=== PATIENT | female | born 1995 | race Caucasian/White ===

== ENCOUNTER 2021-05-26 23:46 | Inpatient (IN) ==
[2021-05-27] MEDS ORDERED: OXYTOCIN 30 UNITS/500 ML BAG IV PRN ×2 (00:45→08:48)
--- NOTE | 2021-05-27 00:55 | History & Physical Report ---
Date of Service May 27, 2021 Assessment & Plan (1) SROM (spontaneous rupture of membranes): Plan: 25 y/o G1 at 39 wga presenting w/ SROM VSS Fetus cat 1 Labor - will manage expectantly, plan to recheck in few hours and if no progression can augment GBS neg Epidural PRN History of Present Illness Chief Complaint: LOF Primary Care Provider: NO PCP 25 y/o G1 at 39 wga w/ ROSALINDA 8/13 by LMP / c/w 1st tri who presents w/ c/o LOF since 1030 pm. Had intercourse earlier this evening then experienced a large gush of fluid and has continued leaking since then. Notes contractions and pressure increased, +FM; denies VB PNI: A1GDM - AC jumped to 81% with EFW 70% 1 wk ago so insulin not started PVCs - s/p cards consult [facility] Past COOK 3 PASTRY Hx: G1 Menarche 13, q28-30d Denies hx STIs Denies hx abnl pap, reported last at age 22 Allergies Allergy/AdvReac Type Severity Reaction Status Date / Time azithromycin Allergy Rash Verified 05/27/21 00:03 Home Medications Medication Instructions Recorded Confirmed Type prenat.vits,humphrey,cmg-wnmw-zpmzz 1 tab PO DAILY 10/18/20 05/27/21 History acetone (urine) test (Ketone Urine #50 ea 04/18/21 05/25/21 Rx Test) blood sugar diagnostic (OneTouch #150 ea 04/18/21 05/25/21 Rx Verio test strips) blood-glucose meter (OneTouch #1 ea 04/18/21 05/25/21 Rx Verio Flex meter) lancets 33 gauge (OneTouch Delica #150 ea 04/18/21 05/25/21 Rx Plus Lancet) Patient History Medical History Varicella vaccination Surgical History No history of previous surgery Family History Denies family history of Ovarian cancer Breast cancer Colorectal cancer Social History Smoking Status: Never smoker Second Hand Exposure: No; Hx Alcohol Use: No Hx Substance Use: No Preferred Language: Arabic Communication Ability: Effective 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 Beliefs That Will Affect Care: None marital status: marital status details: Rhett Hendrix (25) [phone] Current Living Situation: Spouse Current Living Situation Comment: lives with spouse, dog current occupational status: employed current occupation: [employer] in [place] Other Information That Helps Us Care for You: No Feels Safe at Home: Yes Safety Concerns: Feels Safe At This Time Physical Exam Constitutional: WD/WN, vitals as above Respiratory: normal respiratory effort; no respiratory distress and no labored breathing Psychiatric: A+Ox3, euthymic affect Genitourinary: Manual OB Exam: + cervical dilation (2-3), + cervical effacement 90%, + station -2 and + amniotic fluid (+pooling) clear, nitrazine positive and ferning present OB Exam Monitor Tracing: + external FHT monitor used, + external uterine monitor used (q3-5) and + category I (140/mod/+accel/- decel) Results & Data ([facility]) Vital Signs (Past 12 Hours) Vital Signs Temp Pulse Resp BP 05/27/21 00:05 98.6 F 20 05/27/21 00:00 98.6 F 88 20 131/80 Laboratory Results OB Labs: Blood Type B Positive 10/25/20 Antibody Screen NEGATIVE 10/25/20 Hemoglobin 12.9 g/dL (12.0-16.0) 10/25/20 Hematocrit 38.6 % (37-47) 10/25/20 Mean Corpuscular Volume 87.7 fL (80-100) 10/25/20 Platelet Count 326 K/uL (130-400) 10/25/20 Rubella IgG Antibody Immune (Immune) 10/25/20 Rapid Plasma Reagin Nonreactive (Nonreactive) 10/25/20 Hepatitis B Surface Antigen Neg (Neg) 10/25/20 HIV (1&2) Ab and P24 Ag, 4th Gener Neg (Neg) 10/25/20 Glucose 1 Hour 50 gm Load 112 mg/dl (70-130) 12/23/20 OB Optional Labs: Chlamydia trachomatis RNA NOT DETECTED (NOT DETECTED) 10/25/20 Neisseria gonorrhoeae RNA NOT DETECTED (NOT DETECTED) 10/25/20 Thyroid Stimulating Hormone (TSH) 2.300 uIu/ml (0.300-4.500) 07/08/20 Labs Reviewed: cfdna low risk 11/24/20 cf/sma negative 11/24/20 declined AFP GBS neg Diagnostic Findings EFW 70%, AC 81% ant plac Coding Level of Care Code None Diagnoses SROM (spontaneous rupture of membranes)
[2021-05-27 01:06] LABS: Hematocrit (blood only) 34.2 % (37-47); Hemoglobin 11.3 g/dL (12.0-16.0); Mean Corpuscular Hemoglobin 29.5 pg (25-34); Mean Corpuscular Volume 89.3 fL (80-100); Mean Platelet Volume 11.3 fL (7.4-10.4); Platelet Count 271 K/uL (130-400); RDW Coefficient of Variation 15.1 % (11.5-14.5); RDW Standard Deviation 49.2 fL (36.4-46.3); Red Blood Count 3.83 M/uL (4.2-5.4); White Blood Count 9.93 K/uL (4.8-10.8)
[2021-05-27] MEDS ORDERED: BUTORPHANOL TARTRATE 1 MG/ML VIAL IV PRN (03:01)
[2021-05-27] MEDS ORDERED: BUTORPHANOL TARTRATE 1 MG/ML VIAL ONE (03:03)
[2021-05-27] MEDS: LACTATED RINGER'S 1,000 ML IV PRN ×2 (03:27→06:38)
[2021-05-27] MEDS ORDERED: ePHEDrine sulfate 50 MG/ML AMP ONE (04:03)
[2021-05-27] MEDS ORDERED: SODIUM CHLORIDE 0.9% INJ 10 ML VIAL ONE (04:03)
[2021-05-27] MEDS ORDERED: fentaNYL 2MCG/ML ROPIVACAINE 1.25MG/ML 100 ML BAG EPI ONE (04:04)
[2021-05-27] MEDS ORDERED: BUPIVACAINE 0.25% 30 ML VIAL ONE (04:04)
[2021-05-27] MEDS ORDERED: fentaNYL citrate 100 MCG/2 ML VIAL ONE (04:04)
--- NOTE | 2021-05-27 04:12 | Anesthesiology Consultation ---
Date of Service May 27, 2021 Assessment & Plan (1) Encounter for pre-operative examination: Chart Review Chart Review: Acceptable Risk for Labor Epidural Consults Requested none ASA ASA2 Proposed Anesthesia Anesthesia Type: Labor Epidural Risk / Benefits Reviewed With: PT / POA / Parent / Guardian, Accepts Plan and Informed Consent Obtained History Height/Weight Height: 5 ft 5 in Weight: 92.079 kg Allergies Allergy/AdvReac Type Severity Reaction Status Date / Time azithromycin Allergy Rash Verified 05/27/21 00:03 Medications Home Medications Medication Instructions Recorded Confirmed Last Taken prenat.vits,humphrey,luw-fuhh-uifgi 1 tab PO DAILY 10/18/20 05/27/21 05/26/21 22:00 acetone (urine) test (Ketone Urine #50 ea 04/18/21 05/25/21 Unknown Test) blood sugar diagnostic (OneTouch #150 ea 04/18/21 05/25/21 Unknown Verio test strips) blood-glucose meter (OneTouch #1 ea 04/18/21 05/25/21 Unknown Verio Flex meter) lancets 33 gauge (OneTouch Delica #150 ea 04/18/21 05/25/21 Unknown Plus Lancet) Active Medications Generic Name Dose Route Start Last Admin Trade Name Freq PRN Reason Stop Dose Admin Lactated Ringer's 1,000 mls @ 125 mls/hr 05/27/21 00:45 05/27/21 03:27 Lr IV 05/29/21 00:44 999 mls/hr .Q8H PRN Administration L&D Protocol Protocol Past Medical History Medical History Varicella vaccination Exercise / Class Metabolic Activity II 4-5 Yardwork/Stairs/Walk up hill Past Family History Family History Denies family history of Ovarian cancer Breast cancer Colorectal cancer Past Surgical History Surgical History No history of previous surgery Past Anesthesia History No Hx of Anesthesia Complications and No Family Hx of Anesthesia Complications History of PONV No Hx of PONV and No Hx of Motion Sickness Social History Smoking Status: Never smoker Hx Alcohol Use: No Hx Substance Use: No Physical Exam Vital Signs Last Vital Signs Temp 98.4 F 05/27/21 02:02 Pulse 88 05/27/21 00:00 Resp 20 05/27/21 00:05 BP 131/80 05/27/21 00:00 ENMT Mouth: no dentition abnormality Thyromental Distance: > or= 3.5 Finger Breadths Mallampati Class: II Neck normal visual inspection Respiratory normal respiratory effort Auscultation: lungs clear to auscultation bilaterally Cardiovascular Rate/Rhythm: regular rate and regular rhythm Testing Laboratory Results 05/27/21 00:57 05/27/21 00:45 POC Glucose 90
[2021-05-27] MEDS ORDERED: diphenhydrAMINE 50 MG/ML VIAL IV PRN (04:35)
[2021-05-27] MEDS ORDERED: NALBUPHINE HCL INJ 10 MG/ML AMP IV PRN (04:35)
[2021-05-27] MEDS ORDERED: ONDANSETRON INJ 2 MG/ML 2 ML VIAL IV PRN (04:35)
[2021-05-27] MEDS ORDERED: NALOXONE HCL 0.4 MG/1 ML VIAL/CARP IV PRN (04:35)
[2021-05-27] MEDS ORDERED: fentaNYL 2MCG/ML ROPIVACAINE 1.25MG/ML 100 ML BAG EPI PRN (04:35)
[2021-05-27] MEDS ORDERED: NALOXONE HCL 1 MG in SODIUM CHLORIDE 0.9% 1000ML 1,000 ML IV PRN (04:35)
[2021-05-27] MEDS ORDERED: ePHEDrine sulfate 50 MG/ML AMP IV PRN (04:35)
[2021-05-27] MEDS ORDERED: ACETAMINOPHEN 325 MG TAB PO PRN (08:48)
[2021-05-27] MEDS ORDERED: oxyCODONE/ACETAMINOPHEN 5mg/325mg TAB PO PRN (08:48)
[2021-05-27] MEDS ORDERED: OXYTOCIN 20 UNITS in LACTATED RINGER'S 1,000 ML IV SCH (09:00)
--- NOTE | 2021-05-27 09:01 | Delivery Summary ---
Vaginal Delivery Summary Date of Service May 27, 2021 Vaginal Delivery Summary and 2nd Degree LAC PREOPERATIVE DIAGNOSIS: 1. Single intrauterine at 39 weeks gestation 2. SROM 3. Gestational diabetes POSTOPERATIVE DIAGNOSIS: 1. Single intrauterine at 39 weeks gestation 2. SROM 3. Gestational diabetes 4. Delivered PROCEDURE: 1. Normal spontaneous vaginal delivery. SURGEON: Kanchan Boggs MD ANESTHESIA: Epidural. ESTIMATED BLOOD LOSS: 300 mL FLUIDS: Continuous LR. URINE OUTPUT: None. COMPLICATIONS: None. CONDITION: Stable. INDICATIONS: 25 y/o G1 at 39 wga presented early this AM with complaints of LOF. She was found to be ruptured and was expectantly managed. She continued to progress and received an epidural for pain control. She progressed to complete and desired to push FINDINGS: A viable female with Apgars of 9 and 9 at 1 and 5 minutes respectively. SPECIMEN: Cord blood. OPERATIVE REPORT: The patient progressed to 10 cm, 100% effaced and +2 station, pushed over intact perineum with anesthesia to deliver a viable female infant, Apgars as above. Head of delivered in AIDA position. Body cord was present and delivered through. Body and shoulders were delivered without difficulty. was delivered to maternal abdomen and nursing staff. Delayed cord clamping was performed for 60 seconds. Cord was clamped and cut. Cord blood was obtained. Placenta delivered spontaneously intact with 3-vessel cord. IV oxytocin and fundal massage were given for excellent hemostasis. Vagina, cervix, perineum, and placenta were inspected. A second degree laceration was noted and repaired in the usual fashion using 3-0 Vicryl. Sponge and needle counts correct x2. No sponges were left behind. Mother and stable in immediate period. [facility] Vaginal Delivery Charge Vaginal Delivery Codes: 48577 global code for the antepartum, delivery, and post- Delivery Type Details: and 2nd Degree LAC
--- NOTE | 2021-05-27 10:21 | Anesthesia Procedure Note ---
Date of Service May 27, 2021 Anesthesia Post Epidural Note Vital Signs Vital Signs: Temp Pulse Resp BP Pulse Ox 37.0 C 90 18 120/67 97 05/27/21 06:58 05/27/21 10:10 05/27/21 08:00 05/27/21 10:10 05/27/21 08:31 Pain Intensity Bilateral Abdomen: Pain Intensity: 0 Notes Mental Status: alert / awake / arousable and participated in evaluation Patient Amnestic to Procedure: No Nausea / Vomiting: adequately controlled Pain: adequately controlled Airway Patency, RR, SpO2: stable & adequate BP & HR: stable & adequate Hydration State: stable & adequate Neuraxial Anesthesia: was administered and sensory block is resolving Anesthetic Complications: no major complications apparent and Pt Satisfied with anesthetic care Epidural: Removed without complications and With tip intact
[2021-05-27] MEDS ORDERED: BENZOCAINE 20% AER SPR 82.5 GM CAN EXT PRN (13:14)
[2021-05-27] MEDS: IBUPROFEN 600 MG TAB PO PRN ×2 (13:23→17:34)
[2021-05-28 07:22] LABS: Hematocrit (blood only) 30.7 % (37-47); Hemoglobin 9.9 g/dL (12.0-16.0)
--- NOTE | 2021-05-28 07:43 | Obstetrical Progress Note ---
Date of Service <Prudence AdryanDO - Last Filed: 05/28/21 07:43> May 28, 2021 Assessment & Plan <Prudence Cornelius DO - Last Filed: 05/28/21 07:43> (1) Encounter for care and examination after delivery: 25 yo post op day1 from [facility] with GDM, doing well. -Continue routine post care. -vital signs reviewed and WNL (Tmax 36.8) -Blood Type B+, GBS-, Rubella immune -Encourage ambulation, monitor and control pain with Motrin, tylenol PRN, resume regular diet, monitor lochia -encourage breast feeding -hemoglobin 9.9 Day #:: 1 <Brook Samuels MD, FACOG - Last Filed: 05/28/21 07:57> (1) Encounter for care and examination after delivery: Subjective <Prudenceeverett Cornelius DO - Last Filed: 05/28/21 07:43> Ambulation: ambulating normally Voiding: no voiding problems Passing Gas:: Yes Diet Tolerance:: regular diet Lochia:: Small Feeding Type:: breast feeding (with breast pumping) Current Pain Level(1-10): 3 (pain well controlled on medication) Review of Systems Denies fever, chills, sweats Denies shortness of breath, difficulty breathing, chest pain, palpitations, chest pressure. Denies breast pain. Denies dysuria. Denies headache or changes in vision. Physical Exam <Prudence AdryanDO - Last Filed: 05/28/21 07:43> General: Alert, oriented. No acute distress. Cardiac: Regular rate and rhythm, no murmurs/rubs/gallops. Respiratory: Clear to auscultation bilaterally a/p, no wheezes/rales/rhonchi. No increased work of breathing. Symmetrical chest rise. No respiratory distress. Abdomen: Soft, nontender, nondistended. Bowel sounds present. Uterus: Uterine fundus firm, palpable at umbilicus. Lower Extremities: No lower extremity edema or swelling. No deep calf pain. [place]'s negative bilaterally.. Results & Data ([facility]) <Prudence Cornelius DO - Last Filed: 05/28/21 07:43> Vital Signs (Past 12 Hours) Vital Signs Temp Pulse Resp BP Pulse Ox 05/28/21 04:39 36.8 C 75 16 111/74 99 05/27/21 23:15 36.7 C 92 H 16 106/70 98 Laboratory Results 05/28/21 Range/Units 07:14 Hgb 9.9 L (12.0-16.0) g/dL Hct 30.7 L (37-47) % Medications Administered Current Inpatient Medications Acetaminophen (Acetaminophen 325 Mg Tab) 650 mg PO Q6H PRN PRN Reason: Pain/BRAND/Fever Stop: 06/26/21 08:47 Benzocaine (Benzocaine 20% Aer Spr 82.5 Gm Can) 1 appln EXT UD PRN PRN Reason: Pain Stop: 06/26/21 13:13 Last Admin: 05/27/21 13:20 Dose: 1 appln Documented by: Oxytocin (Pitocin) 30 units in 500 mls @ 333.333 mls/hr IV .Q1H30M PRN; Protocol PRN Reason: Bleeding Control Stop: 06/26/21 00:44 Last Titration: 05/27/21 10:10 Dose: Infused Documented by: Lactated Ringer's (Lr) 1,000 mls @ 125 mls/hr IV .Q8H PRN; Protocol PRN Reason: L&D Protocol Stop: 05/29/21 00:44 Last Infusion: 05/27/21 08:39 Dose: Infused Documented by: Oxytocin (Pitocin) 30 units in 500 mls @ 333.333 mls/hr IV .Q1H30M PRN; Protocol PRN Reason: Bleeding Control Stop: 06/26/21 08:47 Oxytocin 20 units/ Lactated (Ringer's) 1,002 mls @ 125 mls/hr IV .Q8H1M [facility] Stop: 06/26/21 08:59 Last Admin: 05/27/21 11:43 Dose: 125 mls/hr Documented by: Ibuprofen (Ibuprofen 600 Mg Tab) 600 mg PO Q4H PRN PRN Reason: Pain/BRAND/Cramping/Fever Stop: 06/26/21 08:47 Last Admin: 05/27/21 17:34 Dose: 600 mg Documented by: Oxycodone/Acetaminophen (Oxycodone/Acetaminophen 5mg/325mg Tab) 1 tab PO Q4H PRN PRN Reason: Pain not relieved by... Stop: 06/10/21 08:47 <Brook Samuels MD, FACOG - Last Filed: 05/28/21 07:57> Co-Signing Physician Notes Resident Physician Supervision Note: I was present with Dr. Cornelius during the history and exam. I discussed the case with the resident and agree with the findings and plan as documented in the note. Any exceptions or clarifications are listed here: doing well, needs to take colace--we did not order. had hgb today approx 9. no issues with bleeding or pain. breast pumping and feeding. abd soft ff 2 down nt. nt calves. ppd#1 s/p , routine care. rh pos, ri. colace ordered. No further labs indicated at this time. Documented By: Brook Samuels MD, FACOG Resident Activity Tracking <Prudence Cornelius DO - Last Filed: 05/28/21 07:43> Resident Involvement: Resident Care Provided Care Provided: OB Delivery
[2021-05-28] MEDS ORDERED: oxyCODONE/ACETAMINOPHEN 5mg/325mg TAB PO PRN (07:58)
[2021-05-28] MEDS: PRENATAL VITAMIN 1 TAB PO SCH (08:46)
[2021-05-28] MEDS: IBUPROFEN 600 MG TAB PO PRN ×2 (08:46→23:22)
[2021-05-28] MEDS: DOCUSATE SODIUM 100 MG CAP PO SCH (08:46)
[2021-05-28] MEDS: FERROUS SULFATE 325 MG TAB PO SCH (08:47)
[2021-05-28] MEDS ORDERED: DOCUSATE SODIUM 100 MG CAP PO SCH (09:00)
[2021-05-28] MEDS ORDERED: bisacodyL 5 MG TABEC PO SCH (09:00)
--- NOTE | 2021-05-29 07:02 | Obstetrical Progress Note ---
Date of Service May 29, 2021 Assessment & Plan (1) Encounter for care and examination after delivery: Ready for d/c home, instructions reviewed. Ready for d/c today, instructions reviewed. Subjective Ambulation: ambulating normally Voiding: no voiding problems Passing Gas:: Yes Diet Tolerance:: regular diet Lochia:: Small Feeding Type:: breast feeding Physical Exam Constitutional WD/WN, vitals as above Eyes PERRL, conjunctivae normal, anicteric sclerae Neck normal visual inspection Respiratory normal respiratory effort and able to speak in complete sentences; no respiratory distress and no labored breathing Cardiovascular Rate/Rhythm: regular rate and regular rhythm Extremities: no edema Chest (Breasts) Chest: normal inspection of chest Gastrointestinal (Abdomen) Inspection/Auscultation: abdomen normal to inspection Soft, postgravid Psychiatric A+Ox3, euthymic affect Genitourinary OB Exam Abdomen: + fundal height Fundus: + firm and + relation to umbilicus (fundus just below umbilicus); not tender Results & Data ([facility]) Vital Signs (Past 12 Hours) Vital Signs Temp Pulse Resp BP 05/28/21 23:15 98.4 F 88 18 123/80
[2021-05-29] MEDS: FERROUS SULFATE 325 MG TAB PO SCH (08:24)
[2021-05-29] MEDS: IBUPROFEN 600 MG TAB PO PRN (08:24)
[2021-05-29] MEDS: PRENATAL VITAMIN 1 TAB PO SCH (08:24)
[2021-05-29] MEDS: DOCUSATE SODIUM 100 MG CAP PO SCH (08:24)
== END 2021-05-29 09:50 | disposition home or self-care (01) | DRG 807 ==
LOC: OPB 23:46 → 4S1 23:47 → 4S2 05-27 12:06